=== PATIENT | female | born 1975 | race Caucasian/White ===

== ENCOUNTER → 2016-11-18 | Outpatient (CLI) | payer OTHER ==
--- NOTE | 2016-11-18 11:59 | US ---
EXAMINATION TYPE: US pelvic complete DATE OF EXAM: 11/18/2016 11:22 AM COMPARISON: None CLINICAL HISTORY: 41-year-old female N93.8 Dysfunctional Uterine Bleeding. TECHNIQUE: Multiple transabdominal sonographic images of the pelvis are obtained. Date of LMP: 11/16/2016 FINDINGS: Uterus: Anteverted measuring 9.5 x 3.1 x 4.6 cm Endometrial Stripe: 0.4 cm Right Ovary: 2.7 x 2.6 x 2.7 cm with a 2.0 cm dominant follicle or functional cyst. Left Ovary: 2.5 x 1.7 x 2.0 cm, within normal limits. No evident adnexal abnormality or cul-de-sac free fluid. IMPRESSION: A 2 cm dominant follicle or functional cyst within the right ovary. Otherwise, no specific abnormalit y seen on transabdominal scanning.
== END | disposition home or self-care (01) ==
LOC: RADUSWWP 10:16
PROVIDERS: ATTEND Internal Medicine
DX: N83.201 Unspecified ovarian cyst, right side (principal)
CPT/HCPCS: 76856

== ENCOUNTER → 2017-01-23 | Outpatient (CLI) | payer OTHER ==
[2017-01-23 15:13] LABS: Basophils % (A) 0 %; Eosinophils # (A) 0.1 k/uL (0-0.7); Eosinophils % (A) 1 %; HDW 2.77; HGB 11.7 gm/dL (11.4-16.0); Hypochromasia Marked; Luc % (Auto) 1; Lymphocytes % (A) 24 %; MCH 22.7 pg (25.0-35.0); MCHC 30.8 g/dL (31.0-37.0); MCV 73.6 fL (80.0-100.0); Mean Platelet Volume 7.1; Microcytosis Slight; Monocytes # (A) 0.4 k/uL (0-1.0); Monocytes % (A) 5 %; Neutrophils # (A) 5.7 k/uL (1.3-7.7); Neutrophils % (A) 68 %; RBC 5.17 m/uL (3.80-5.40); RDW 15.3 % (11.5-15.5); WBC 8.3 k/uL (3.8-10.6); WBC (Perox) 8.55
== END ==
LOC: LABPAT 13:57
PROVIDERS: ATTEND Obstetrics & Gynecology
DX: Z01.812 Encounter for preprocedural laboratory examination (principal)
CPT/HCPCS: 85025

== ENCOUNTER 2017-01-29 06:32 | Day surgery (SDC) | payer OTHER ==
[2017-01-23 15:10] VITALS: BMI 36.1
--- NOTE | 2017-01-28 20:15 | P.HPOB ---
History of Present Illness H&P Date: 01/28/17 Chief Complaint: Menorrhagia with irregular cycle, anemia This is a 41-year-old female 4 para 3 who presents for dilation and curettage with hysteroscopy and NovaSure endometrial ablation secondary to menorrhagia with irregular cycle and anemia. She complains of heavy menses for the last 2 years. Her menses are occurring every 2 weeks and are very heavy to where she is changing a pad 3-5 times per hour. She complains of abdominal pain and cramping along with low back pain and some hot flashes. She was just started on control pills approximately a month ago. She does not wish to stay on control pills due to her other medical problems. Pelvic ultrasound showed a uterus measuring 9.5 x 3.1 x 4.6 cm with an endometrial stripe of 0.47 m. Her right ovary had a 2 cm dominant follicle. Her left ovary appeared normal. Obstetrical history: . She has a history of 1 vaginal delivery and 2 sections. She also has a history of 1 miscarriage. Gynecologic history: She has no history of sexual transmitted diseases. Her has had a vasectomy. Social history: She is and works at a [employer]. Review of Systems Constitutional: Reports fatigue, Reports weight gain Eyes: denies blurred vision, denies pain Ears, nose, mouth and throat: Reports vertigo Cardiovascular: Denies chest pain, Denies shortness of breath Respiratory: Denies cough Gastrointestinal: Reports diarrhea, Denies abdominal pain Genitourinary: Reports abnormal vaginal bleeding, Reports dysmenorrhea, Reports vaginal discharge Menstruation: Reports cycle < 21 days, Reports cycle variable, Reports period heavy Musculoskeletal: Reports low back pain Integumentary: Denies pruritus, Denies rash Neurological: Reports headaches Psychiatric: Denies anxiety, Denies depression Endocrine: Reports flushing Past Medical History Past Medical History: Diabetes Mellitus, Seizure Disorder Additional Past Medical History / Comment(s): hx seizure disorder- last seizure 07/29 (grand mal) pt states does not take meds for seizures, hx migraines, vertigo, "heavy vaginal bleeding" History of Any Multi-Drug Resistant Organisms: None Reported Past Surgical History: Section (X2), Cholecystectomy Additional Past Surgical History / Comment(s): Nasal surgery Past Anesthesia/Blood Transfusion Reactions: Motion Sickness Past Psychological History: No Psychological Hx Reported Smoking Status: Never smoker Past Alcohol Use History: Occasional Past Drug Use History: None Reported - Past Family History Father Family Medical History: Cancer, Deep Vein Thrombosis (DVT) Additional Family Medical History / Comment(s): colon cancer Medications and Allergies Home Medications Medication Instructions Recorded Confirmed Type Ibuprofen [Motrin] 200 - 400 mg PO Q6HR PRN 01/23/17 01/23/17 History Multivitamins, Thera [Multivitamin 1 tab PO DAILY 01/23/17 01/23/17 History (formulary)] metFORMIN HCL 1,000 mg PO BID 01/23/17 01/23/17 History Allergies Allergy/AdvReac Type Severity Reaction Status Date / Time No Known Allergies Allergy Verified 01/23/17 14:52 Exam Osteopathic Statement: *. No significant issues noted on an osteopathic structural exam other than those noted in the History and Physical/Consult. HEENT: Within normal limits Heart: Regular rate and rhythm Lungs: Clear to auscultation bilaterally Abdomen: Soft, nontender Pelvic exam: Uterus is anteverted, nontender, with first-degree uterine prolapse. Second degree cystocele is noted. No adnexal masses or tenderness are palpated. Extremities: Negative Homans Assessment and Plan (1) Menorrhagia with irregular cycle Status: Acute Plan: Proceed with dilation and curettage with hysteroscopy and NovaSure endometrial ablation. I have discussed the risks, benefits, and alternative therapies for the above- mentioned procedure and for both sedation/anesthesia as well as necessary blood products administration, if indicated, as they pertain to this patient. The patient has indicated her understanding and acceptance of the risks and procedures discussed.
[~2017-01-29 06:32] MED LIST: DEXAMETHASONE SOD PHOSPHATE 10 MG/ML 1 ML VIAL IV ONE; LACTATED RINGERS 1,000 ML IV SCH; ONDANSETRON 4 MG/2 ML VIAL IVP ONE; Pre Op ABX Message 1 EACH MISC MISCELLANE ONE; SCOPOLAMINE 1.5MG/72HR PATCH TRANSDERM ONE; fentaNYL (PF) 50 MCG/ML 2 ML AMP IV PRN
[2017-01-29 07:00] LABS: Glucose,Whole Blood 138 mg/dL (75-99)
[2017-01-29] MEDS ORDERED: LIDOCAINE 1% 20 ML VIAL (10MG/ML) FOR IV START INTRADERMA ONE (07:00)
[2017-01-29] MEDS ORDERED: PROPOFOL 10 MG/ML 20 ML VIAL IV ONE (07:28)
[2017-01-29] MEDS ORDERED: LIDOCAINE 1% INJ 10MG/ML (20 ML MDV) ONE (07:28)
[2017-01-29] MEDS ORDERED: MIDAZOLAM 2 MG/2 ML VIAL ONE (07:28)
[2017-01-29] MEDS ORDERED: KETOROLAC 30 MG/ML 1 ML VIAL ONE (07:28)
[2017-01-29] MEDS ORDERED: HYDROmorphone (PF) 1 MG/ML ONE (07:28)
[2017-01-29] MEDS ORDERED: fentaNYL (PF) 50 MCG/ML 2 ML AMP ONE (07:28)
[2017-01-29 08:14] VITALS: TEMP 96.8
[2017-01-29 08:18] LABS: Glucose,Whole Blood 137 mg/dL (75-99)
[2017-01-29 08:19] VITALS: RESP 16
[2017-01-29 10:46] VITALS: BP 148/84; PULSE 80
--- NOTE | 2017-01-29 11:52 | P.OP ---
Date of Procedure: 01/29/17 Preoperative Diagnosis: Menorrhagia, anemia Postoperative Diagnosis: Same Procedure(s) Performed: Hysteroscopy with dilation and curettage and NovaSure endometrial ablation Implants: Anesthesia: other (Mask general) Surgeon: Jessica Agee Estimated Blood Loss (ml): 3 Pathology: other (Endometrial curettings) Disposition: same day Indications for Procedure: This is a 41-year-old female 4 para 3 who presents for dilation and curettage with hysteroscopy and NovaSure endometrial ablation secondary to menorrhagia with irregular cycle and anemia. She complains of heavy menses for the last 2 years. Her menses are occurring every 2 weeks and are very heavy to where she is changing a pad 3-5 times per hour. She complains of abdominal pain and cramping along with low back pain and some hot flashes. She was just started on control pills approximately a month ago. She does not wish to stay on control pills due to her other medical problems. Pelvic ultrasound showed a uterus measuring 9.5 x 3.1 x 4.6 cm with an endometrial stripe of 0.47 m. Her right ovary had a 2 cm dominant follicle. Her left ovary appeared normal. Operative Findings: Uterus is anteverted, sounded to 9-1/2 cm. Cervix is sounded to 47 m. Upon hysteroscopy, there was noted to be a few small polyps. There was a dyssynchronous endometrial appearance. Both tubal ostia were visualized. No adnexal masses are palpated. A moderate amount of endometrial curettings are obtained. Description of Procedure: The patient is taken to the operating room. She is placed in the dorsal lithotomy position after general anesthesia was given. She is prepped and draped in the normal sterile fashion. Bladder is drained with a catheter and then removed. Pelvic exam is performed under anesthesia. Uterus is found to be anteverted with no adnexal masses. She is placed in slight Trendelenburg position. A right angle retractor is used to visualize the cervix. The anterior lip of the cervix is grasped with a single-tooth tenaculum. Cervix is sounded to 4 cm. Uterus is sounded to 9.5 cm. Cervix is gently dilated with Portillo dilators until a hysteroscope could be passed. Hysteroscopy is performed using normal saline. The above noted findings are noted. Next a polyp forceps is introduced. A moderate amount of tissue was obtained. Next medium-sized size sharp curette was placed. A moderate amount of endometrial curettings were obtained. Next NovaSure array was inserted into the endometrial cavity. Length was set at 5.5 cm and width was determined to be 3.5 cm. Next cavity assessment was completed and passed on the first try. Next NovaSure array was fired at 106 W for 92 seconds. Next the array was removed, inspected and then discarded. Next the hysteroscope was reinserted. Uniform charring was noted. Pictures were taken. Hysteroscope was removed. Single-tooth tenaculum was removed from the anterior lip of the cervix. Minimal bleeding was noted. All other instruments removed from the vagina. Sponge counts were correct. Patient is taken to recovery room in stable condition.
== END 2017-01-29 11:14 | disposition home or self-care (01) ==
LOC: OR 06:32
PROVIDERS: ATTEND Obstetrics & Gynecology
DX: N92.0 Excessive and frequent menstruation with regular cycle (principal); D64.9 Anemia, unspecified; N92.6 Irregular menstruation, unspecified; E11.9 Type 2 diabetes mellitus without complications; Z79.84 Long term (current) use of oral hypoglycemic drugs
CPT/HCPCS: 81025; 88305; 58563; J2250; J1100; J2405; J2001; J3010; J1885; J1170; J2704

== ENCOUNTER 2017-06-11 12:22 | Emergency (ER) | payer OTHER ==
[2017-06-11 12:30] VITALS: PULSE 75
[2017-06-11] MEDS ORDERED: ACETAMINOPHEN TAB 500 MG TAB PO STA (12:42)
[2017-06-11] MEDS ORDERED: SODIUM CHLORIDE 0.9% 1,000 ML IV ONE (12:42)
[2017-06-11] MEDS ORDERED: diphenhydrAMINE 50 MG/ML 1 ML VIAL IVP STA (12:42)
[2017-06-11] MEDS ORDERED: METOCLOPRAMIDE 5 MG/ML 2 ML VIAL IVP STA (12:42)
--- NOTE | 2017-06-11 12:48 | ED ---
Head Injury HPI - General Chief complaint: Head Injury Stated complaint: Fall-Head Pain Source: patient Mode of arrival: wheelchair Limitations: no limitations - History of Present Illness Initial comments: Patient is a 41-year-old female who presents for evaluation after slip and fall in her shower this morning at 6 AM. Past medical history as below. Patient stated that she just cleaned her bathtub and felt that it was extra slippery. She was facing the opposite of the drain and lost her footing and fell down striking the back of her head in the bathtub/faucet. There is no loss of consciousness. She had pain to the back of her head after. She got out of the shower and sat down for little bit. She then was nauseous and threw up 3 times. Since that time, she's had a persistent headache in the back of her head where she fell. She is able to walk okay. She drove here without any difficulty. She feels a little "fuzzy ". No visual disturbances. Her headache is a little bit better than her typical migraines. This is not the worst headache she's ever had. The nausea persist. No previous head injuries in the past. She does not take aspirin or any other blood thinners. She currently denies fever, chills, URI symptoms, shortness of breath, cough, chest pain, diarrhea, pain or burning with urination. - Related Data Home Medications Medication Instructions Recorded Confirmed Multivitamins, Thera [Multivitamin 1 tab PO DAILY 01/23/17 06/11/17 (formulary)] metFORMIN HCL 1,000 mg PO BID 01/23/17 06/11/17 Allergies/Adverse reactions: Allergies Allergy/AdvReac Type Severity Reaction Status Date / Time No Known Allergies Allergy Verified 06/11/17 12:40 Review of Systems ROS Statement: Those systems with pertinent positive or pertinent negative responses have been documented in the HPI. ROS Other: All systems not noted in ROS Statement are negative. Past Medical History Past Medical History: Diabetes Mellitus, Seizure Disorder Additional Past Medical History / Comment(s): migraines History of Any Multi-Drug Resistant Organisms: None Reported Past Surgical History: Section Past Psychological History: No Psychological Hx Reported Smoking Status: Never smoker Past Alcohol Use History: Occasional Past Drug Use History: None Reported General Exam Limitations: no limitations General appearance: alert, in no apparent distress, other (Nontoxic appearing) Head exam: Present: atraumatic, normocephalic, normal inspection, other (Pain with palpation of the right posterior occiput. Negative Gaytan sign. Negative raccoon eyes.) Eye exam: Present: normal appearance, PERRL, EOMI. Absent: scleral icterus, conjunctival injection, periorbital swelling ENT exam: Present: normal exam, mucous membranes moist Neck exam: Present: normal inspection, other (No midline cervical spine tenderness. Full extension and flexion.). Absent: tenderness, meningismus, lymphadenopathy Respiratory exam: Present: normal lung sounds bilaterally. Absent: respiratory distress, wheezes, rales, rhonchi, stridor Cardiovascular Exam: Present: regular rate, normal rhythm, normal heart sounds. Absent: systolic murmur, diastolic murmur, rubs, gallop, clicks GI/Abdominal exam: Present: soft, normal bowel sounds. Absent: distended, tenderness, guarding, rebound, rigid Extremities exam: Present: normal inspection, full ROM, normal capillary refill. Absent: tenderness, pedal edema, joint swelling, calf tenderness Back exam: Present: normal inspection Neurological exam: Present: alert, oriented X3, CN II-XII intact, other ( Cranial nerves II through XII grossly intact without focal neurological deficits. 5 out of 5 strength of the upper or lower extremities. She is alert and oriented 3. Mentation appropriate. No ataxia of the upper extremities bilaterally. Gait intact.) Psychiatric exam: Present: normal affect, normal mood Skin exam: Present: warm, dry, intact, normal color. Absent: rash Course Vital Signs 06/11/17 06/11/17 12:28 14:02 Temperature 97.5 F L Pulse Rate 75 75 Respiratory 20 16 Rate Blood Pressure 177/87 159/72 O2 Sat by Pulse 99 98 Oximetry Medical Decision Making - Medical Decision Making Patient is a 41-year-old female percents for evaluation after fall in her bathtub this morning at 6 AM. No loss of consciousness. Ambulatory without difficulty after. Actually drove here. She is having some pain to the right posterior occiput. Negative Gaytan sign and raccoon eyes. Neurologically intact. She still nauseous. She had several episodes of emesis. Suspect concussion. However, the patient does have some tenderness. Will order CT head and neck. Migraine cocktail. Urine HCG. 1340: Urine hcg negative. Awaiting imaging. 1400: CT head negative for acute bleed. Incidental finding of benign cerebellar ectopia. Pt states that she gets frequent MRI's for screening for aneurysms. Symptoms have 100% resolved. Discussed closed head injury instructions for home. Brain rest. Close follow-up with her primary care physician or neurologist. Discussed specific signs and symptoms on when to return to the emergency department for further evaluation. Patient voiced understanding. Comfortable with discharge home. - Lab Data Lab Results 06/11/17 Range/Units 13:00 Urine HCG, Qual Not Detected (Not Detectd) Disposition Clinical Impression: Fall, Closed head injury, Concussion Disposition: HOME SELF-CARE Condition: Good Instructions: Concussion (ED) Referrals: Rylie Woods MD [Primary Care Provider] - 1-2 days
--- NOTE | 2017-06-11 14:00 | CT ---
EXAMINATION TYPE: CT brain criss blanca con DATE OF EXAM: 06/11/2017 COMPARISON: NONE HISTORY: 41-year-old female Fall, head pain CT DLP: 1416.8 mGycm Automated exposure control for dose reduction was used. Technique: Examination of the head was done in axial plane without intravenous contrast. Coronal and sagittal reconstructions performed. CT of the cervical spine was obtained in axial plane without intravenous injection of contrast mater ial. Coronal and sagittal reformatted images were obtained from the axial views for evaluation of f ractures, spinal alignment and canal. FINDINGS: Head: There is no evidence of acute intracranial hemorrhage, acute ischemic changes, mass, mass-effect, or extra-axial fluid collection. There is no effacement of cerebral sulci or basal subarachnoid cister ns. There is no hydrocephalus. There is no midline shift. Henao-white matter distinction is preserv ed. There is 3.8 mm of left-sided cerebellar tonsillar herniation and 4.4 mm on the right. Findings most suggestive of benign cerebellar tonsillar ectopia. Partially empty sella incidentally noted. Trace mucosal thickening along the floors of the maxillary sinuses. Mastoid air cells well pneumatize d. Orbits and globes are intact. No calvarial fracture Cervical spine: The alignment of the cervical spine is normal on coronal and reformatted images. There is no cranial vertebral abnormality. Fracture of the cervical spine is not seen. Assessment of the spinal canal fro m C5-C6 and below is limited due to artifact from the patient's shoulders. Otherwise, no large focal disc herniation or significant neural foraminal stenosis seen. Sagittal and coronal reformatted images confirm above findings. COMBINED IMPRESSION: 1. No acute intracranial abnormality seen. 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 2. No acute fracture or malalignment of the cervical spine.
[2017-06-11 14:03] VITALS: BP 159/72; RESP 16
[2017-06-11 14:23] VITALS: TEMP 98.2
== END 2017-06-11 14:22 | disposition home or self-care (01) ==
LOC: EC 12:22
DX: S06.0X0A Concussion without loss of consciousness, initial encounter (principal); E11.9 Type 2 diabetes mellitus without complications; Z79.82 Long term (current) use of aspirin; Z79.899 Other long term (current) drug therapy; W01.10XA Fall on same level from slipping, tripping and stumbling with subsequent striking against unspecified object, initial encounter; Y92.002 Bathroom of unspecified non-institutional (private) residence as the place of occurrence of the external cause
CPT/HCPCS: 70450; 72125; 81025; 96361; 96374; 96375; 99284

== ENCOUNTER → 2018-10-14 | Outpatient (CLI) | payer OTHER | END | disposition home or self-care (01) | LOC: LABWHC1 15:54 | PROVIDERS: ATTEND Psychiatry & Neurology Neurology | DX: G40.009 Localization-related (focal) (partial) idiopathic epilepsy and epileptic syndromes with seizures of localized onset, not intractable, without status epilepticus (principal) | CPT/HCPCS: 36415; 82565; 84520 ==

== ENCOUNTER → 2018-10-18 | Outpatient (CLI) | payer OTHER ==
--- NOTE | 2018-10-18 22:38 | MR ---
EXAMINATION TYPE: MR angio head wo con DATE OF EXAM: 10/18/2018 COMPARISON: NONE HISTORY: Seizure TECHNIQUE: Time of flight images focusing on the [place] were performed without contrast.. 2-D and 3-D postprocessing imaging is performed on MRI scanner. FINDINGS: There is dominant right vertebral artery. Vertebral arteries are patent to basilar junction . There is a patent left posterior communicating artery. There is hypoplastic right posterior communi cating artery. No significant focal stenosis or aneurysmal change in the posterior circulation is pre sent. There is patent anterior communicating artery which is large caliber and continues as an anterior bra nching vessel, presumably a normal variant. Anterior circulation shows no aneurysm or significant foc al stenosis. IMPRESSION: No aneurysmal change at level of [place].
--- NOTE | 2018-10-19 08:14 | MR ---
EXAMINATION TYPE: MR brain wo/w con DATE OF EXAM: 10/18/2018 COMPARISON: CT brain June 11, 2017 HISTORY: Seizure TECHNIQUE: Multiplanar, multisequence images of the brain and brainstem is performed without and with IV contras t, utilizing 7.5 mL intravenous Gadavist . FINDINGS: Diffusion weighted images demonstrate no evidence of a recent infarct or other diffusion ab normality. There is no extra-axial fluid collection or significant white matter signal abnormality. The ventricular system and cisternal spaces are normal in size and appearance. The brain volume is age appropriate. T2 coronal weighted images show hippocampal gyri to appear symmetric and felt within normal limits. Midline structures redemonstrate an empty sella morphology. The craniocervical junction appears with in normal limits. Post contrast images demonstrate no abnormal enhancement. The dural venous sinuses appear patent. The visualized sinuses are clear. The globes are intact bilaterally. There is focal p rominence of CSF in the subarachnoid space surrounding the bilateral optic nerves. IMPRESSION: Empty sella morphology with prominence of CSF in the subarachnoid space around bilateral optic nerves raises concern for possible idiopathic intracranial hypertension, correlate clinically.
== END | disposition home or self-care (01) ==
LOC: RADMRIMAIN 18:20
PROVIDERS: ATTEND Psychiatry & Neurology Neurology
DX: G40.009 Localization-related (focal) (partial) idiopathic epilepsy and epileptic syndromes with seizures of localized onset, not intractable, without status epilepticus (principal); I67.1 Cerebral aneurysm, nonruptured
CPT/HCPCS: 70544; 70553; A9585

== ENCOUNTER → 2021-06-12 | Outpatient (CLI) | payer OTHER ==
--- NOTE | 2021-06-12 16:30 | US ---
EXAMINATION TYPE: US pelvis complete transvag DATE OF EXAM: 06/12/2021 COMPARISON: CLINICAL HISTORY: R10.2 Pelvic and perineal pain. Generalized pain. Hx endometrial ablation TECHNIQUE: Transvaginal (TV) and Transabdominal (TA) . Transabdominal sonographic images of the pel vis were acquired. Transvaginal sonographic images were medically necessary to better assess the fol lowing anatomy: Ovaries, endometrium Date of LMP: Unknown, EXAM MEASUREMENTS: Uterus: 6.7 x 3.1 x 2.6 cm Endometrial Stripe: 0.2 cm Right Ovary: 4.0 x 3.5 x 3.0 cm 1. Uterus: Anteverted Heterogenous 2. Endometrium: wnl 3. Right Ovary: Complex cyst= 3.9 x 2.7 x 3.0 cm 4. Left Ovary: Obscured by overlying bowel gas 5. Bilateral Adnexa: wnl 6. Posterior cul-de-sac: no free fluid Cervix- two prominent nabothian cysts. IMPRESSION: 1. Complex cyst right ovary. Consider follow-up study in 6 weeks.
== END | disposition home or self-care (01) ==
LOC: RADUSWWP 15:43
PROVIDERS: ATTEND Internal Medicine
DX: N83.291 Other ovarian cyst, right side (principal)
CPT/HCPCS: 76830; 76856

== ENCOUNTER → 2021-07-04 | Outpatient (CLI) | payer OTHER ==
--- NOTE | 2021-07-04 12:37 | US ---
EXAMINATION TYPE: US abdomen complete DATE OF EXAM: 07/04/2021 COMPARISON: None CLINICAL HISTORY: 45-year-old female R94.5 Abnormal results of liver function studies. TECHNIQUE: Multiple sonographic images of the abdomen are obtained. FINDINGS: EXAM MEASUREMENTS: Liver Length: 15.7 cm CBD: 0.4 cm Spleen: 11.2 cm Right Kidney: 11.3 x 4.6 x 4.4 cm Left Kidney: 11.8 x 4.5 x 4.5 cm Pancreas: Only portions of the pancreatic body are seen. Head and tail obscured by bowel gas shadowi ng. Liver: Limited due to overlying bowel gas and intercostal windows. Slightly attenuated appearance. Gallbladder: Surgically absent Evidence for sonographic Abbasi's sign: neg CBD: wnl Spleen: wnl Kidneys: No hydronephrosis. Upper IVC: wnl Abd Aorta: Proximal obscured by overlying bowel gas IMPRESSION: 1. Slightly attenuating appearance to the liver may reflect mild fatty infiltration. Detailed assessm ent is limited due to overlying bowel gas and intercostal windows. Vertebral status post cholecystectomy. No biliary ductal dilatation.
== END | disposition home or self-care (01) ==
LOC: RADUSWWP 07:19
PROVIDERS: ATTEND Internal Medicine
DX: R94.5 Abnormal results of liver function studies (principal); Z90.49 Acquired absence of other specified parts of digestive tract
CPT/HCPCS: 76700

== ENCOUNTER → 2021-07-10 | Outpatient (CLI) | payer OTHER ==
--- NOTE | 2021-07-12 11:44 | MM ---
Reason for exam: screening (asymptomatic). Baseline mammogram. History: Took hormonal contraceptives beginning at age 17. Physical Findings: Nurse did not find any significant physical abnormalities on exam. MG Screening Mammo w CAD Bilateral CC and MLO view(s) were taken. There are scattered fibroglandular densities. There is no discrete abnormality. ASSESSMENT: Negative, BI-RAD 1 RECOMMENDATION: Routine screening mammogram of both breasts in 1 year.
== END | disposition home or self-care (01) ==
LOC: RADMAMWWP 14:09
PROVIDERS: ATTEND Internal Medicine
DX: Z12.31 Encounter for screening mammogram for malignant neoplasm of breast (principal)
CPT/HCPCS: 77067

== ENCOUNTER → 2022-02-19 | Outpatient (CLI) | payer OTHER ==
--- NOTE | 2022-02-19 11:51 | XR ---
EXAMINATION TYPE: XR KUB DATE OF EXAM: 02/19/2022 COMPARISON: 11/21/2011 INDICATION: Generalized right abdominal pain TECHNIQUE: Single view abdomen frontal projection FINDINGS: There is a normal bowel gas pattern. Fecal debris is within the colon. Psoas margins are normal. No organomegaly is present. Some degenerative changes at the right hip. IMPRESSION: 1. Unremarkable Abdomen
== END | disposition home or self-care (01) ==
LOC: RADXRYALE 10:54
PROVIDERS: ATTEND Internal Medicine
DX: R10.84 Generalized abdominal pain (principal); R31.9 Hematuria, unspecified
CPT/HCPCS: 74018

== ENCOUNTER 2024-09-25 15:46 | Emergency (ER) | payer OTHER ==
--- NOTE | 2024-09-25 16:49 | ED ---
Neck Injury/Pain HPI - General Chief Complaint: Neck Pain/Injury Stated Complaint: neck pain Time Seen by Provider: 09/25/24 16:25 Source: RN notes reviewed, old records reviewed Mode of arrival: ambulatory Limitations: no limitations - History of Present Illness Initial Comments: This is a 49 female to the ER for evaluation of neck pain. Patient says a weeklong of left-sided neck pain into her left arm and down her left arm. Patient has seen chiropractor twice with no improvement symptoms are persistent. Taking anti-inflammatories with no help. No trauma no fevers recent influenza with bronchitis with resolution. No sore throat runny nose cough or congestion and no shortness of breath MD Complaint: neck pain, upper back pain, other (Left arm numbness tingling) -: week(s) Place: home Radiation: left lateral, left shoulder, upper back Severity: moderate Severity scale (1-10): 7 Quality: stabbing Consistency: intermittent Improves With: none Worsens With: none Context: turning/bending, recent chiropractic manipulation Associated Symptoms: numbness, tingling - Related Data Home Medications Medication Instructions Recorded Confirmed Multivitamins, Thera [Multivitamin 1 tab PO DAILY 01/23/17 06/11/17 (formulary)] metFORMIN HCL [Glucophage] 1,000 mg PO BID 01/23/17 06/11/17 Previous Rx's Medication Instructions Recorded Ketorolac [Toradol] 10 mg PO Q6HR #20 tab 09/25/24 Allergies Allergy/AdvReac Type Severity Reaction Status Date / Time No Known Allergies Allergy Verified 06/11/17 12:40 Review of Systems ROS Statement: Those systems with pertinent positive or pertinent negative responses have been documented in the HPI. ROS Other: All systems not noted in ROS Statement are negative. Past Medical History Past Medical History: Diabetes Mellitus, Seizure Disorder Additional Past Medical History / Comment(s): migraines History of Any Multi-Drug Resistant Organisms: None Reported Past Surgical History: Section, Uterine Ablation Past Psychological History: No Psychological Hx Reported Past Alcohol Use History: Occasional Past Drug Use History: None Reported General Exam Limitations: no limitations General appearance: alert, in no apparent distress Head exam: Present: atraumatic, normocephalic, normal inspection Eye exam: Present: normal appearance, PERRL, EOMI. Absent: scleral icterus, conjunctival injection, periorbital swelling ENT exam: Present: normal exam, mucous membranes moist Neck exam: Present: normal inspection. Absent: tenderness, meningismus, lymphadenopathy Respiratory exam: Present: normal lung sounds bilaterally. Absent: respiratory distress, wheezes, rales, rhonchi, stridor Cardiovascular Exam: Present: regular rate, normal rhythm, normal heart sounds. Absent: systolic murmur, diastolic murmur, rubs, gallop, clicks GI/Abdominal exam: Present: soft, normal bowel sounds. Absent: distended, tenderness, guarding, rebound, rigid Extremities exam: Present: normal inspection, full ROM, normal capillary refill. Absent: tenderness, pedal edema, joint swelling, calf tenderness Back exam: Present: normal inspection Neurological exam: Present: alert, oriented X3, CN II-XII intact Psychiatric exam: Present: normal affect, normal mood Skin exam: Present: warm, dry, intact, normal color. Absent: rash Course Vital Signs 09/25/24 15:56 Temperature 97.6 F Pulse Rate 75 Respiratory 20 Rate Blood Pressure 164/80 O2 Sat by Pulse 98 Oximetry - Reevaluation(s) Reevaluation #1: 09/25/24 17:18 Medical records reviewed Reevaluation #2: 09/25/24 18:20 Patient symptoms are improving but still persistent Reevaluation #3: 09/25/24 18:20 Patient informed of results questions answered Reevaluation #4: Was pt. sent in by a medical professional or institution (, PA, PAINT ROLLER COVERS SUPERVISOR, urgent care, hospital, or senior living...) When possible be specific @ -no Did you speak to anyone other than the patient for history (EMS, parent, family, police, friend...)? What history was obtained from this source @ -no Did you review nursing and triage notes (agree or disagree)? Why? @ -agree Are old charts reviewed (outside hosp., previous admission, EMS record, old EKG, old radiological studies, urgent care reports/EKG's, senior living records)? Report findings @ -yes Differential Diagnosis (chest pain, altered mental status, abdominal pain women, abdominal pain men, vaginal bleeding, weakness, fever, dyspnea, syncope, headache, dizziness, GI bleed, back pain, seizure, CVA, palpatations, mental health, musculoskeletal)? @ -prior EKG interpreted by me (3pts min.). @ -yes X-rays interpreted by me (1pt min.). @ -yes negative for acute disease CT interpreted by me (1pt min.). @ -no U/S interpreted by me (1pt. min.). @ -no What testing was considered but not performed or refused? (CT, X-rays, U/S, labs)? Why? @ -none What meds were considered but not given or refused? Why? @ -none Did you discuss the management of the patient with other professionals (blayne simms i.eKaushik Posey, PA, PAINT ROLLER COVERS SUPERVISOR, lab, RT, psych nurse, rn social services, private equity analyst, teacher, employment security officer, case filler)? Give summary @ -no Was smoking cessation discussed for >3mins.? @ -no Was critical care preformed (if so, how long)? @ -no Were there social determinants of health that impacted care today? How? (Homelessness, low income, unemployed, alcoholism, drug addiction, transportation, low edu. Level, literacy, decrease access to med. care, [facility], rehab)? @ -none Was there de-escalation of care discussed even if they declined (Discuss DNR or withdrawal of care, Hospice)? DNR status @ -no What co-morbidities impacted this encounter? (DM, HTN, Smoking, COPD, CAD, Cancer, CVA, ARF, Chemo, Hep., AIDS, mental health diagnosis, sleep apnea, morbid obesity)? @ -none Was patient admitted / discharged? Hospital course, mention meds given and route, prescriptions, significant lab abnormalities, going to OR and other pertinent info. @ - Undiagnosed new problem with uncertain prognosis? @ -no Drug Therapy requiring intensive monitoring for toxicity (Heparin, Nitro, Insulin, Cardizem)? @ -no Were any procedures done? @ -no Diagnosis/symptom? @ - Acute, or Chronic, or Acute on Chronic? @ -Acute Uncomplicated (without systemic symptoms) or Complicated (systemic symptoms)? @ -Complicated Side effects of treatment? @ -no Exacerbation, Progression, or Severe Exacerbation? @ -exacerbation Poses a threat to life or bodily function? How? (Chest pain, [place], [place], pneumonia, PE, COPD, DKA, ARF, appy, cholecystitis, CVA, Diverticulitis, Homicidal, Suicidal, threat to staff... and all critical care pts) @ -yes Medical Decision Making - Medical Decision Making 49 female presenting today for evaluation in regards to neck pain, cervical radiculopathy, symptoms of cervical radiculopathy into the left arm. Patient has improved symptoms when moving the left arm but no numbness or loss of sensation, no decrease in strength. Patient will continue follow-up with outpatient - Radiology Data Radiology results: report reviewed (, X-ray of shoulder and chest is negative for acute disease), image reviewed Disposition Clinical Impression: Strain of neck muscle, Cervical radiculopathy Disposition: HOME SELF-CARE Condition: Fair Instructions (If sedation given, give patient instructions): Cervical Strain (ED), Cervical Sprain (ED) Prescriptions: Ketorolac [Toradol] 10 mg PO Q6HR #20 tab Is patient prescribed a controlled substance at d/c from ED?: No Referrals: Rylie Woods MD [Primary Care Provider] - 1-2 days Time of Disposition: 18:00
--- NOTE | 2024-09-25 17:11 | CT ---
EXAMINATION TYPE: CT cervical spine wo con DATE OF EXAM: 09/25/2024 5:02 PM COMPARISON: None. CLINICAL INDICATION: Female, 49 years old with history of pain, Neck pain radiating down left arm. No injury., pain TECHNIQUE: Unenhanced CT of the cervical spine was performed with bone and soft tissue window setting s submitted. Coronal and sagittal reconstruction is obtained. CT DLP: 392.9 mGycm, Automated exposure control for dose reduction was used. IV Contrast: and , (none if empty) Oral Contrast: mL of , (none if empty) FINDINGS: There is normal alignment and prevertebral soft tissues. I do not see evidence for fracture or sublu xation. The lung apices are clear. C2-3, C3-4, C4-5 and C7-T1 are all within normal limits C5-6 and C6-7: Mild degenerative disc space narrowing. Very mild posterior disc bulge. No herniation or central stenosis. Foramina are patent bilaterally. IMPRESSION: No evidence for fracture or subluxation of the cervical spine. Mild degenerative changes at C5-6 and C6-7 as outlined above. [facility], , 09/25/2024 5:09 PM
--- NOTE | 2024-09-25 17:38 | XR ---
EXAMINATION TYPE: XR chest 2V DATE OF EXAM: 09/25/2024 5:25 PM COMPARISON: None. CLINICAL INDICATION: Female, 49 years old with history of pain, TECHNIQUE: Frontal and lateral views of the chest are obtained. FINDINGS: There is no focal air space opacity, pleural effusion, or pneumothorax seen. The cardiac silhouette size is within normal limits. The osseous structures are intact. IMPRESSION: No acute cardiopulmonary process. [facility], , 09/25/2024 5:36 PM
--- NOTE | 2024-09-25 17:39 | XR ---
EXAMINATION TYPE: XR shoulder complete LT DATE OF EXAM: 09/25/2024 5:25 PM COMPARISON: None. CLINICAL INDICATION: Female, 49 years old with history of pain, pain TECHNIQUE: XR shoulder complete LT views were obtained FINDINGS: There is no acute fracture/dislocation evident. The acromioclavicular and glenohumeral joint spaces appear within normal limits. The visualized ribs are intact and unremarkable. IMPRESSION: There is no acute fracture or dislocation. [facility], , 09/25/2024 5:36 PM
[2024-09-25] MEDS: ACETAMINOPHEN TAB 500 MG TAB PO STA (18:34)
[2024-09-25] MEDS: KETOROLAC 15 MG/ML 1 ML VIAL IM STA (18:35)
[2024-09-25] MEDS: dexAMETHasone 2 MG TAB PO STA (18:35)
[2024-09-25] MEDS: traMADol 50 MG STARTER PACK 3 TAB BTL PO STA (18:36)
[2024-09-25 18:48] VITALS: BP 165/71; PULSE 71; RESP 18; TEMP 97.8
== END 2024-09-25 18:46 | disposition home or self-care (01) ==
LOC: EC 15:46
DX: S16.1XXA Strain of muscle, fascia and tendon at neck level, initial encounter (principal); M54.12 Radiculopathy, cervical region; X58.XXXA Exposure to other specified factors, initial encounter
CPT/HCPCS: 73030; 71046; 72125; 99284; 96372; J8540; J1885

== ENCOUNTER 2024-10-01 05:48 | Emergency (ER) | payer OTHER ==
[2024-10-01 05:59] VITALS: TEMP 97.4
--- NOTE | 2024-10-01 06:22 | ED ---
Upper Extremity HPI - General Chief Complaint: Extremity Injury, Upper Stated Complaint: Arm pain Time Seen by Provider: 10/01/24 06:22 Source: patient Mode of arrival: ambulatory Limitations: no limitations - History of Present Illness Initial Comments: 49-year-old female presented to the ER for evaluation of arm pain. Patient states 2 weeks ago she started to experience neck pain with radiation to her left upper extremity. Patient was seen here on Thursday and had imaging completed. Patient was diagnosed with cervical radiculopathy and discharged wi tor. She has followed up with her chiropractor for deep tissue massage and has been taking ketorolac with no improvement of arm pain. She does report neck pain has resolved. Pain is located over distal bicep and she describes it as a "hot/ burning" pain. No radiation of pain. She states she has to elevate and rub arm to slightly improve pain. She denies any injuries or traumas. Denies any chest pain, shortness of breath, dizziness, lightheadedness. Patient also has been using CBD oil and biofreeze without relief. She denies any fevers, chills, nausea, vomiting, weakness or paresthesias to the left upper extremity. No other complaints. - Related Data Home Medications Medication Instructions Recorded Confirmed Multivitamins, Thera [Multivitamin 1 tab PO DAILY 01/23/17 06/11/17 (formulary)] metFORMIN HCL [Glucophage] 1,000 mg PO BID 01/23/17 06/11/17 Previous Rx's Medication Instructions Recorded Ketorolac [Toradol] 10 mg PO Q6HR #20 tab 09/25/24 Gabapentin 300 mg PO DAILY #15 cap 10/01/24 Allergies Allergy/AdvReac Type Severity Reaction Status Date / Time No Known Allergies Allergy Verified 10/01/24 05:59 Review of Systems ROS Statement: Those systems with pertinent positive or pertinent negative responses have been documented in the HPI. ROS Other: All systems not noted in ROS Statement are negative. Past Medical History Past Medical History: Diabetes Mellitus, Seizure Disorder Additional Past Medical History / Comment(s): migraines History of Any Multi-Drug Resistant Organisms: None Reported Past Surgical History: Section, Uterine Ablation Past Psychological History: No Psychological Hx Reported Smoking Status: Never smoker Past Alcohol Use History: Occasional Past Drug Use History: None Reported General Exam Limitations: no limitations General appearance: alert, in no apparent distress Respiratory exam: Present: normal lung sounds bilaterally. Absent: respiratory distress, wheezes, rales, rhonchi, stridor Cardiovascular Exam: Present: regular rate, normal rhythm, normal heart sounds. Absent: systolic murmur, diastolic murmur, rubs, gallop, clicks Extremities exam: Present: normal inspection, full ROM, tenderness (left distal bicep pain. No rosanne sign.), normal capillary refill. Absent: pedal edema, joint swelling, calf tenderness Neurological exam: Present: alert, oriented X3, CN II-XII intact Skin exam: Present: warm, dry, intact, normal color. Absent: rash Course Vital Signs 10/01/24 10/01/24 05:56 08:28 Temperature 97.4 F L Pulse Rate 74 72 Respiratory 16 18 Rate Blood Pressure 170/97 179/89 O2 Sat by Pulse 96 98 Oximetry Medical Decision Making - Medical Decision Making Was pt. sent in by a medical professional or institution (, PA, INSTRUCTIONAL TECHNOLOGY COORDINATOR, urgent care, hospital, or half-way...) When possible be specific @ -No Did you speak to anyone other than the patient for history (EMS, parent, family, police, friend...)? What history was obtained from this source @ -No Did you review nursing and triage notes (agree or disagree)? Why? @ -I reviewed and agree with nursing and triage notes Were old charts reviewed (outside hosp., previous admission, EMS record, old EKG, old radiological studies, urgent care reports/EKG's, half-way records)? Report findings @ -Yes, I reviewed ER visit from 09-25-2024. CT cervical spine showing no evidence of acute fracture or subluxation. Mild degenerative changes at C5-C6 and C6-C7. Chest x-ray and left shoulder x-ray interpreted me negative for acute osseous abnormality. Patient given IM Decadron, Toradol, Tylenol and was discharged with a tramadol starter pack. Differential Diagnosis (chest pain, altered mental status, abdominal pain women, abdominal pain men, vaginal bleeding, weakness, fever, dyspnea, syncope, h eadache, dizziness, GI bleed, back pain, seizure, CVA, palpatations, mental health, musculoskeletal)? @ -Differential Musculoskeletal: Muscular strain, contusion, ligament sprain, fracture, arthritis, septic arthritis, bursitis, cellulitis, muscle spasm, nerve compression, DVT, arterial occlusion, herpes zoster, electrolyte abnormality, tumor.... This is not meant to be in all inclusive list EKG interpreted by me (3pts min.). @ -None done X-rays interpreted by me (1pt min.). @ -Left humerus x-ray interpreted by me negative for acute fractures] CT interpreted by me (1pt min.). @ -None done U/S interpreted by me (1pt. min.). @ -None done What testing was considered but not performed or refused? (CT, X-rays, U/S, labs)? Why? @ -None What meds were considered but not given or refused? Why? @ -None Did you discuss the management of the patient with other professionals (professionals i.e. , PA, INSTRUCTIONAL TECHNOLOGY COORDINATOR, lab, RT, psych nurse, professor of social work, utilities estimator and drafter, teacher, soil science technical officer, rifle case repairer)? Give summary @ -No Was smoking cessation discussed for >3mins.? @ -No Was critical care preformed (if so, how long)? @ -No Were there social determinants of health that impacted care today? How? (Homelessness, low income, unemployed, alcoholism, drug addiction, transportation, low edu. Level, literacy, decrease access to med. care, nursing home, rehab)? @ -No Was there de-escalation of care discussed even if they declined (Discuss DNR or withdrawal of care, Hospice)? DNR status @ -No What co-morbidities impacted this encounter? (DM, HTN, Smoking, COPD, CAD, Cancer, CVA, ARF, Chemo, Hep., AIDS, mental health diagnosis, sleep apnea, morbid obesity)? @ -Diabetes mellitus, seizure disorder Was patient admitted / discharged? Hospital course, mention meds given and route, prescriptions, significant lab abnormalities, going to OR and other pertinent info. @ -Discharged. 49 year old female presenting to the ER for evaluation of left arm pain. Patient seen here prior and was diagnosed with cervical radiculopathy. Upon rooming, history and physical exam completed. Vitals within acceptable limits. There is mild tenderness to palpation of left distal bicep. Patient is neurovascularly intact. No overlying skin changes. Given concern of possible cardiac etiology, cardiac workup obtained. Troponin undetectable. EKG showing a sinus rhythm no evidence of infarct or ischemia. Left humerus x-ray negative. Patient given symptomatic treatment in the ER with IV fluids, Toradol and Dilaudid. Upon reevaluation, patient resting comfortably in exam room no signs of acute distress. Patient reporting mild improvement of pain and is agreeable for discharge at this time. Patient prescribed gabapentin and instructed to follow-up closely with PCP. Strict return parameters disc ussed. Patient discharged in stable condition. Patient verbally expressed understanding and agreement with care plan. Case discussed with ED attending, Dr. Scott Undiagnosed new problem with uncertain prognosis? @ -No Drug Therapy requiring intensive monitoring for toxicity (Heparin, Nitro, Insulin, Cardizem)? @ -No Were any procedures done? @ -No Diagnosis/symptom? @ -Arm pain Acute, or Chronic, or Acute on Chronic? @ -Acute Uncomplicated (without systemic symptoms) or Complicated (systemic symptoms)? @ -Uncomplicated Side effects of treatment? @ -No Exacerbation, Progression, or Severe Exacerbation? @ -No Poses a threat to life or bodily function? How? (Chest pain, [place], [place], pneumonia, PE, COPD, DKA, ARF, appy, cholecystitis, CVA, Diverticulitis, Homicidal, Suicidal, threat to staff... and all critical care pts) @ -No - Lab Data Result diagrams: 10/01/24 07:34 10/01/24 07:34 Lab Results 10/01/24 10/01/24 10/01/24 Range/Units 07:34 07:34 07:34 WBC 8.2 (3.8-10.6) k/uL RBC 4.74 (3.80-5.40) m/uL Hgb 13.8 (11.4-16.0) gm/dL Hct 40.8 (34.0-46.0) % MCV 86.0 (80.0-100.0) fL MCH 29.1 (25.0-35.0) pg MCHC 33.9 (31.0-37.0) g/dL RDW 12.4 (11.5-15.5) % Plt Count 150 (150-450) k/uL MPV 8.9 Neutrophils % 74 % Lymphocytes % 20 % Monocytes % 4 % Eosinophils % 2 % Basophils % 0 % Neutrophils # 6.0 (1.3-7.7) k/uL Lymphocytes # 1.7 (1.0-4.8) k/uL Monocytes # 0.3 (0-1.0) k/uL Eosinophils # 0.1 (0-0.7) k/uL Basophils # 0.0 (0-0.2) k/uL PT 10.8 (10.0-12.5) sec INR 1.0 (<1.2) APTT 25.3 (22.0-30.0) sec Sodium 134 L (137-145) mmol/L Potassium 4.2 (3.5-5.1) mmol/L Chloride 101 (98-107) mmol/L Carbon Dioxide 25 (22-30) mmol/L Anion Gap 8 mmol/L BUN 13 (7-17) mg/dL Creatinine 0.47 L (0.52-1.04) mg/dL Est GFR (CKD-EPI)AfAm >90 (>60 ml/min/1.73 sqM) Est GFR (CKD-EPI)NonAf >90 (>60 ml/min/1.73 sqM) Glucose 360 H (74-99) mg/dL Calcium 8.8 (8.4-10.2) mg/dL Total Bilirubin 1.2 (0.2-1.3) mg/dL AST 49 H (14-36) U/L ALT 105 H (4-34) U/L Alkaline Phosphatase 89 (38-126) U/L Troponin I (0.000-0.034) ng/mL Total Protein 6.3 (6.3-8.2) g/dL Albumin 3.5 (3.5-5.0) g/dL 10/01/24 Range/Units 07:34 WBC (3.8-10.6) k/uL RBC (3.80-5.40) m/uL Hgb (11.4-16.0) gm/dL Hct (34.0-46.0) % MCV (80.0-100.0) fL MCH (25.0-35.0) pg MCHC (31.0-37.0) g/dL RDW (11.5-15.5) % Plt Count (150-450) k/uL MPV Neutrophils % % Lymphocytes % % Monocytes % % Eosinophils % % Basophils % % Neutrophils # (1.3-7.7) k/uL Lymphocytes # (1.0-4.8) k/uL Monocytes # (0-1.0) k/uL Eosinophils # (0-0.7) k/uL Basophils # (0-0.2) k/uL PT (10.0-12.5) sec INR (<1.2) APTT (22.0-30.0) sec Sodium (137-145) mmol/L Potassium (3.5-5.1) mmol/L Chloride (98-107) mmol/L Carbon Dioxide (22-30) mmol/L Anion Gap mmol/L BUN (7-17) mg/dL Creatinine (0.52-1.04) mg/dL Est GFR (CKD-EPI)AfAm (>60 ml/min/1.73 sqM) Est GFR (CKD-EPI)NonAf (>60 ml/min/1.73 sqM) Glucose (74-99) mg/dL Calcium (8.4-10.2) mg/dL Total Bilirubin (0.2-1.3) mg/dL AST (14-36) U/L ALT (4-34) U/L Alkaline Phosphatase (38-126) U/L Troponin I <0.012 (0.000-0.034) ng/mL Total Protein (6.3-8.2) g/dL Albumin (3.5-5.0) g/dL - EKG Data -: EKG Interpreted by Me EKG Comments: EKG taken at 7: 20 showing a sinus rhythm. No ST segment elevations or depressions. T wave inversions in lead III. Ventricular rate 69, GA interval 1 57, QRS duration 92, QT/QTc 397/416 - Radiology Data Radiology results: report reviewed, image reviewed Disposition Clinical Impression: Arm pain, Neuropathy Disposition: HOME SELF-CARE Condition: Stable Instructions (If sedation given, give patient instructions): Diabetic Peripheral Neuropathy (ED) Additional Instructions: Follow-up closley with PCP. Return to the ER for any new or worsening symptoms. Prescriptions: Gabapentin 300 mg PO DAILY #15 cap Is patient prescribed a controlled substance at d/c from ED?: No Referrals: Rylie Woods MD [Primary Care Provider] - 1-2 days Time of Disposition: 08:12
[2024-10-01] MEDS: KETOROLAC 15 MG/ML 1 ML VIAL IM STA (06:40)
[2024-10-01] MEDS: HYDROmorphone 0.5 MG/0.5 ML SYRINGE IVP STA (07:36)
[2024-10-01] MEDS: SODIUM CHLORIDE 0.9% 1,000 ML IV ONE (07:36)
[2024-10-01 07:40] LABS: Basophils % (A) 0 %; Eosinophils # (A) 0.1 k/uL (0-0.7); Eosinophils % (A) 2 %; HCT 40.8 % (34.0-46.0); HGB 13.8 gm/dL (11.4-16.0); Lymphocytes # (A) 1.7 k/uL (1.0-4.8); Lymphocytes % (A) 20 %; MCH 29.1 pg (25.0-35.0); MCHC 33.9 g/dL (31.0-37.0); Mean Platelet Volume 8.9; Monocytes # (A) 0.3 k/uL (0-1.0); Monocytes % (A) 4 %; Neutrophils % (A) 74 %; Platelet Count 150 k/uL (150-450); RBC 4.74 m/uL (3.80-5.40); RDW 12.4 % (11.5-15.5); WBC 8.2 k/uL (3.8-10.6)
[2024-10-01 07:49] LABS: ALT 105 U/L (4-34); AST 49 U/L (14-36); African American GFR (CKD) >90 (>60 ml/min/1.73 sqM); Albumin 3.5 g/dL (3.5-5.0); Alkaline Phosphatase 89 U/L (38-126); Anion Gap 8 mmol/L; Blood Urea Nitrogen 13 mg/dL (7-17); Calcium 8.8 mg/dL (8.4-10.2); Carbon Dioxide 25 mmol/L (22-30); Chloride 101 mmol/L (98-107); Glucose 360 mg/dL (74-99); Non-African American GFR(CKD) >90 (>60 ml/min/1.73 sqM); Potassium 4.2 mmol/L (3.5-5.1); Sodium 134 mmol/L (137-145); Total Bilirubin 1.2 mg/dL (0.2-1.3); Total Protein 6.3 g/dL (6.3-8.2)
[2024-10-01 07:51] LABS: Partial Thromboplastin Time 25.3 sec (22.0-30.0); Prothrombin Time 10.8 sec (10.0-12.5)
--- NOTE | 2024-10-01 08:06 | XR ---
EXAMINATION TYPE: XR humerus LT DATE OF EXAM: 10/01/2024 CLINICAL INDICATION: Female, 49 years old with history of pain, pain TECHNIQUE: Two views of the left humerus are obtained. COMPARISON: Shoulder x-ray 6 days earlier. FINDINGS: There is no acute fracture or dislocation seen in the left humerus. No suspicious focal os seous lesion. The left shoulder and elbow joints appear within normal limits. The overlying soft tis tamra appears within normal limits. IMPRESSION: Unremarkable study. [facility], , 10/01/2024 8:04 AM
[2024-10-01 08:29] VITALS: BP 179/89; PULSE 72; RESP 18
== END 2024-10-01 08:28 | disposition home or self-care (01) ==
LOC: EC 05:48
DX: G56.92 Unspecified mononeuropathy of left upper limb (principal); G40.909 Epilepsy, unspecified, not intractable, without status epilepticus; E11.40 Type 2 diabetes mellitus with diabetic neuropathy, unspecified; Z79.84 Long term (current) use of oral hypoglycemic drugs
CPT/HCPCS: 36415; 93005; 80053; 84484; 85025; 85610; 85730; 73060; 99284; 96374; 96361; 96372; J1885; J1171